=== PATIENT | male | born 1995 | race Caucasian/White ===

== ENCOUNTER 2024-10-08 20:42 | Emergency (ER) | payer OTHER, SELFPAY ==
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
[2024-10-08 20:51] VITALS: BP 159/82; PULSE 79; RESP 17; TEMP 37.2; O2SAT 99; BMI 35.6
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
[2024-10-09 03:10] VITALS: BP 129/82; PULSE 86; RESP 19; TEMP 36.4; O2SAT 96
== END 2024-10-09 03:11 | disposition home or self-care (01) ==
PROVIDERS: Emergency Provider Internal Medicine
DX: S29.012A Strain of muscle and tendon of back wall of thorax, initial encounter (principal); R51.9 Headache, unspecified; M54.6 Pain in thoracic spine; V43.52XA Car driver injured in collision with other type car in traffic accident, initial encounter; Y93.9 Activity, unspecified; Y92.410 Unspecified street and highway as the place of occurrence of the external cause; Y99.8 Other external cause status
CPT/HCPCS: 70450; 72072; 99282; 99284

== ENCOUNTER → 2024-10-08 20:53 | Outpatient (BNV) | payer SELFPAY | PROVIDERS: Visit Provider Radiology Diagnostic Radiology | DX: R42 Dizziness and giddiness (principal); V89.2XXA Person injured in unspecified motor-vehicle accident, traffic, initial encounter | CPT/HCPCS: 70450; 72072 ==